=== PATIENT | female | born 1955 | race Hispanic/Latino ===

== ENCOUNTER 2021-03-07 15:00 | Outpatient (CLI) | payer MEDICARE | END 2021-03-07 15:01 | disposition home or self-care (01) | LOC: BICMAMMO 15:00 | PROVIDERS: ATTEND Family Medicine | DX: Z12.31 Encounter for screening mammogram for malignant neoplasm of breast (principal); Z13.820 Encounter for screening for osteoporosis; N95.9 Unspecified menopausal and perimenopausal disorder | CPT/HCPCS: 77063; 77067; 77080 ==

== ENCOUNTER 2021-11-26 15:37 | Outpatient (CLI) | payer MEDICARE, OTHER | END 2021-11-26 15:38 | disposition home or self-care (01) | LOC: ULT 15:37 | PROVIDERS: ATTEND Family Medicine | DX: I83.813 Varicose veins of bilateral lower extremities with pain (principal); M79.661 Pain in right lower leg; M79.662 Pain in left lower leg | CPT/HCPCS: 93970 ==

== ENCOUNTER 2022-05-25 13:36 | Outpatient (CLI) | payer MEDICARE | END 2022-05-25 13:37 | disposition home or self-care (01) | LOC: BICMAMMO 13:36 | PROVIDERS: ATTEND Family Medicine | DX: Z12.31 Encounter for screening mammogram for malignant neoplasm of breast (principal) | CPT/HCPCS: 77063; 77067 ==

== ENCOUNTER 2023-07-12 14:58 | Outpatient (CLI) | payer MEDICARE, OTHER | END 2023-07-12 14:59 | disposition home or self-care (01) | LOC: BICMAMMO 14:58 | PROVIDERS: ATTEND Family Medicine | DX: Z12.31 Encounter for screening mammogram for malignant neoplasm of breast (principal); Z13.820 Encounter for screening for osteoporosis; Z78.0 Asymptomatic menopausal state | CPT/HCPCS: 77063; 77067; 77080 ==

== ENCOUNTER 2024-05-08 15:59 | Outpatient (CLI) | payer MEDICARE, OTHER | END 2024-05-08 16:00 | disposition home or self-care (01) | LOC: BICRAD 15:59 | PROVIDERS: ATTEND Family Medicine | DX: S43.401A Unspecified sprain of right shoulder joint, initial encounter (principal); M19.011 Primary osteoarthritis, right shoulder ==